=== PATIENT | male | born 1970 | race Caucasian/White ===

== ENCOUNTER → 2016-10-30 | Outpatient (CLI) | payer OTHER ==
[~2016-10-30] MED LIST: ASPEC81 PO; CYM/30 PO; HYDR-5688 PO; LISI-725 PO; METO1TAB69 PO; OXYC-57 PO; OXYSR10 PO; SNK PO; SOLI10TA2 PO; ZOLP10TA6 PO
--- NOTE | 2016-10-30 11:10 | DIAGNOSTIC IMAGING REPORT ---
LEFT HIP UNILATERAL 2 VIEWS CLINICAL HISTORY: Left hip pain. COMPARISON: Pelvis and left hip radiographs August 19, 2015. FINDINGS: A left hip resurfacing is noted. Hardware is intact. There is no fracture. No unexpected radiopaque foreign body is identified. A few soft tissue calcifications are chronic. IMPRESSION: 1. Status post left hip resurfacing seen. Stable postoperative appearance. 2. No acute fracture. Electronically signed by: Dalton Jo M.D. 10/30/2016 11:09 AM Dictated Date/Time: 10/30/2016 11:08 AM
--- NOTE | 2016-10-30 11:12 | DIAGNOSTIC IMAGING REPORT ---
L-SPINE MIN 4 VIEWS ROUTINE CLINICAL HISTORY: Lower back and left hip pain. COMPARISON: None FINDINGS: Alignment of the lumbar spine is anatomic. Vertebral body heights are maintained. There is no fracture or suspicious lesion. Disc spaces are preserved. There is mild endplate osteophytosis at several levels. Bowel gas pattern is normal. There are rudimentary ribs at the T12 level. IMPRESSION: 1. No lumbar spine fracture or subluxation. 2. Minimal multilevel degenerative changes of the lumbar spine. Electronically signed by: Dalton Jo M.D. 10/30/2016 11:11 AM Dictated Date/Time: 10/30/2016 11:10 AM
== END | disposition home or self-care (01) ==
LOC: C.RADBC 09:49
PROVIDERS: ATTEND Anesthesiology
DX: M54.5 Low back pain (principal); M25.552 Pain in left hip